=== PATIENT | male | born 1960 | race Caucasian/White ===

== ENCOUNTER 2017-01-01 08:59 | Day surgery (SDC) | payer BC ==
[~2017-01-01 08:59] MED LIST: ACETAMINOPHEN 1,000 MG/100 ML BTL IV ONE
[2017-01-01] MEDS ORDERED: MIDAZOLAM HCL 2MG/2ML VIAL IV ONE (14:00)
[2017-01-01] MEDS ORDERED: SEVOFLURANE 250 ML INH ONE (14:00)
[2017-01-01] MEDS ORDERED: LIDOCAINE 2% MDV (20MG/ML) 20ML VIAL IV ONE (14:00)
[2017-01-01] MEDS ORDERED: KETOROLAC 30 MG/ML VIAL IVP ONE (14:00)
[2017-01-01] MEDS ORDERED: MEPERIDINE 50 MG/1 ML VIAL IVP ONE (14:00)
[2017-01-01] MEDS ORDERED: PROPOFOL 10 MG/ML VIAL IV ONE (14:00)
[2017-01-01] MEDS ORDERED: BUPIVACAINE 0.25% W/EPI MPF 30ML VIAL IVP ONE (14:33)
--- NOTE | 2017-01-01 17:00 | Operative Note ---
DATE OF SURGERY: 01/01/2017 Surgeon: Joe Dejesus DO PREOPERATIVE DIAGNOSES: 1. Torn medial meniscus of the left knee. 2. Chondromalacia of the left knee. POSTOPERATIVE DIAGNOSES: 1. Torn medial meniscus, left knee. 2. Torn lateral meniscus, left knee. 3. 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 4. Chondrocalcinosis of left knee. OPERATIVE PROCEDURES: 1. Arthroscopic partial medial and lateral meniscectomy, left knee. 2. Arthroscopic partial synovectomy, left knee (2 compartments). 3. Arthroscopic chondroplasty of medial femoral condyle and patella, left knee. PROCEDURE: This 56-year-old male was taken to the operating room and placed in the supine position on the operating room table where spinal anesthesia was induced. The left lower extremity was then elevated, exsanguinated, and the tourniquet inflated to 300 mmHg. Arthroscopic knee arzate applied. Left knee prepped with Hibiclens and draped in the usual sterile fashion. An inferolateral portal was established for the 4 mm arthroscope and initial evaluation of the joint demonstrated normal appearance of the suprapatellar pouch but the patient did have grade 2 chondromalacia mostly at the median ridge but extended some over to the lateral facet with severe grade 2 changes being identified. The patient had loose fragment of articular cartilage there, and chondroplasty was performed with the rotating shaver and it was re-probed and confirmed to be stable through an inferomedial portal. The trochlea appears to be normal. The medial compartment was entered and the patient demonstrated a complex tear of the posterior horn of the medial meniscus. This had both flap and horizontal cleavage components, the apex of the tear being at approximately the 12-o'clock position. There were clearly seen deposits of calcium pyrophosphate on the meniscus consistent with chondrocalcinosis. The patient's medial femoral condyle demonstrated grade 2 changes noted throughout the entire weightbearing surface of the medial femoral condyle. Loose fragments of articular cartilage were present there, and chondroplasty was performed to stabilize the remaining articular cartilage. The articular cartilage lesion extended from as far posteriorly as could be seen to the level of the meniscal rest. The meniscus was then resected back to the apex of the tear utilizing the basket forceps and then tapered in each direction to restore stability to the remaining meniscus. This was then re-probed and confirmed to be stable. We also performed a partial synovectomy in the medial compartment due to synovitis present there. The intracondylar notch was examined and found to be normal. The lateral compartment was entered and synovitis was also present there, and partial synovectomy was performed. The patient also demonstrated chondrocalcinosis of the lateral meniscus at the posterior root where there was a degenerative fraying of the meniscus there. We utilized the basket forceps and rotating shaver to resect the small area near the posterior root. This was not a root tear per se but degeneration at the level of the root of the meniscus. We utilized a basket forceps and rotating shaver to smooth and stabilize the articular cartilage there. The joint was then copiously irrigated and suctioned. The instruments were removed. The portals infiltrated with 0.25% Marcaine with epinephrine. Sterile dressings applied. Tourniquet and knee arzate released. The patient taken to the recovery room in satisfactory condition. GROSS PATHOLOGY: This patient demonstrated tears of both the medial and lateral menisci as described. In addition, grade 2 chondromalacia of the entire weightbearing surface of the medial femoral condyle, showed grade 2 changes and some scuffing of the tibial plateau. The patella demonstrated grade 2 changes noted at the median ridge and lateral facet of the patella. Chondrocalcinosis also noted as described, and some synovitis in the anterior, medial, and lateral compartments was also evident. CC: DO AMRIK Antonio
== END 2017-01-01 12:10 | disposition home or self-care (01) ==
LOC: SUR 08:59
PROVIDERS: ATTEND Orthopaedic Surgery
DX: S83.242A Other tear of medial meniscus, current injury, left knee, initial encounter (principal); S83.282A Other tear of lateral meniscus, current injury, left knee, initial encounter; E78.00 Pure hypercholesterolemia, unspecified; M22.42 Chondromalacia patellae, left knee; M11.262 Other chondrocalcinosis, left knee
CPT/HCPCS: 93005; 29880; 29876; 01400; J1885